=== PATIENT | female | born 1960 | race American Indian/Alaskan Native ===

== ENCOUNTER 2020-02-21 01:01 | Emergency (ER) | payer OTHER ==
[~2020-02-21] VITALS: Ht 165.1 cm; Wt 70.0 kg
[2020-02-21] MEDS ORDERED: famotidine/PF 10 mg/ml inj IV ONE (01:10)
[2020-02-21] MEDS ORDERED: pantoprazole 40 MG vial IV ONE (01:10)
[2020-02-21] MEDS ORDERED: normal saline 1000ml 1,000 ML IV ONE (01:10)
[2020-02-21] MEDS ORDERED: ondansetron/PF 4mg/2ml inj IV ONE (01:10)
[2020-02-21] MEDS ORDERED: ONDA8TAB6 PO (01:12)
[2020-02-21 02:00] VITALS: BP 153/94
== END 2020-02-21 02:02 | disposition home or self-care (01) ==
LOC: ER 01:02
DX: F10.129 Alcohol abuse with intoxication, unspecified (principal); R11.2 Nausea with vomiting, unspecified; Z88.5 Allergy status to narcotic agent; Z79.899 Other long term (current) drug therapy; Y90.9 Presence of alcohol in blood, level not specified
CPT/HCPCS: 96374; 96375; 99284; C9113; J2405; J3490; J7030